=== PATIENT | female | born 1955 | race Caucasian/White ===

== ENCOUNTER 2016-07-26 14:51 | Inpatient (IN) | payer OTHER ==
[~2016-07-26] VITALS: Ht 165.1 cm; Wt 76.0 kg
--- NOTE | 2016-07-26 15:40 | EKG ---
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
[2016-07-26 16:36] LABS: BASO % 1 % (0-3); EOS % 1 % (0-3); HEMATOCRIT 39.3 % (36.0-47.0); HEMOGLOBIN 12.9 g/dL (12.0-15.5); LYMPH # 2.6 x10^3/uL (1.0-4.8); LYMPH % 39 % (24-48); MEAN CORPUSCULAR HEMOGLOBIN 29 pg (25-35); MEAN CORPUSCULAR HGB CONC 33 g/dL (31-37); MEAN CORPUSCULAR VOLUME 89 fL (79-100); MONO % 5 % (0-9); NEUT % 55 % (31-73); PLATELET COUNT 346 x10^3/uL (140-400); RED BLOOD COUNT 4.42 x10^6/uL (3.50-5.40); RED CELL DISTRIBUTION WIDTH 13.7 % (11.5-14.5); WHITE BLOOD COUNT 6.8 x10^3/uL (4.0-11.0)
[2016-07-26 16:44] LABS: BARBITURATES NEG (NEG); BENZODIAZEPINES NEG (NEG); CANNABINOIDS NEG (NEG); COCAINE NEG (NEG); METHADONE NEG (NEG); OPIATES NEG (NEG); PHENCYCLIDINE NEG (NEG)
[2016-07-26 16:45] LABS: ETHANOL, URINE NEG (NEG)
[2016-07-26 16:51] LABS: CALCIUM 9.6 mg/dL (8.5-10.1); CREATININE 1.2 mg/dL (0.6-1.0); GFR 46.1; POTASSIUM 3.6 mmol/L (3.5-5.1); PROTHROMBIN TIME PATIENT 12.5 SEC (11.7-14.0)
--- NOTE | 2016-07-26 16:55 | RAD ---
CT of the head without contrast, 07/26/2016: History: Right arm weakness The ventricles are within normal limits in size. There is no shift of the midline structures. There is no evidence of acute intracranial hemorrhage or mass effect. IMPRESSION: No acute intracranial abnormality is detected. PQRS Compliance Statement: One or more of the following individualized dose reduction techniques were utilized for this examination: 1. Automated exposure control 2. Adjustment of the mA and/or kV according to patient size 3. Use of iterative reconstruction technique
[2016-07-26 16:56] LABS: ALBUMIN 4.1 g/dL (3.4-5.0); ALBUMIN/GLOBULIN RATIO 1.1 (1.0-1.7); TOTAL BILIRUBIN 0.4 mg/dL (0.2-1.0); TOTAL PROTEIN 7.7 g/dL (6.4-8.2)
--- NOTE | 2016-07-26 16:56 | RAD ---
Portable chest, 07/26/2016: History: Right arm numbness The heart size and pulmonary vascularity are normal. There is mild tortuosity of the thoracic aorta. There is minimal linear scarring or atelectasis in the left base. No pulmonary consolidation is seen. There is no evidence of pleural fluid. IMPRESSION: No acute cardiopulmonary abnormality is detected.
[2016-07-26] MEDS ORDERED: ASPIRIN 81 MG TAB.CHEW PO ONE (17:15)
[2016-07-26] MEDS ORDERED: ONDANSETRON PF 4 MG/2 ML VIAL. IV PRN (18:00)
--- NOTE | 2016-07-26 19:02 | PHYS DOC ---
Past Medical History Past Medical History: Other Additional Past Medical Histor: PID, Past Surgical History: Hysterectomy Additional Past Surgical Histo: l fa plates and r wr ortho, Alcohol Use: None Drug Use: None Adult General Chief Complaint Chief Complaint: NEURO SYMPTOMS/DEFICITS HPI HPI 60-year-old female who works at [employer] was at work today walked to the desk and suddenly felt everything shift to the right and developed what she describes as a " arm". She states the heaviness in her right arm went away but numbness and tingling persisted so she was concerned about a stroke so she came down to the emergency department for further evaluation. On arrival here patient states that her symptoms have essentially resolved. She denies any headache. She denies any visual or speech disturbance. She did not have any trouble with her gait. Her NIH stroke scale was 0 [] Review of Systems Review of Systems Constitutional: Denies fever or chills [] Eyes: Denies change in visual acuity, redness, or eye pain [] HENT: Denies nasal congestion or sore throat [] Respiratory: Denies cough or shortness of breath [] Cardiovascular: No additional information not addressed in HPI [] GI: Denies abdominal pain, nausea, vomiting, bloody stools or diarrhea [] : Denies dysuria or hematuria [] Musculoskeletal: Denies back pain or joint pain [] Integument: Denies rash or skin lesions [] Neurologic: Per history of present illness [] Endocrine: Denies polyuria or polydipsia [] Current Medications Current Medications Current Medications Medications (Trade) Dose Ordered Sig/Brandon Start Time Stop Time Status Last Admin Dose Admin Aspirin (Children'S Aspirin) 324 mg 1X ONCE 07/26/16 17:15 07/26/16 17:16 DC 07/26/16 17:21 324 MG Ondansetron HCl (Zofran) 4 mg PRN Q8HRS PRN 07/26/16 18:00 07/27/16 17:59 Allergies Allergies Allergies Coded Allergies Type Severity Reaction Last Updated Verified egg Allergy Intermediate 07/26/16 Yes gluten Allergy Unknown 07/26/16 Yes soy Allergy Unknown 07/26/16 Yes diazepam Adverse Reaction Intermediate 07/26/16 Yes Physical Exam Physical Exam Constitutional: Well developed, well nourished, no acute distress, non-toxic appearance. [] HENT: Normocephalic, atraumatic, bilateral external ears normal, oropharynx moist, no oral exudates, nose normal. [] Eyes: PERRLA, EOMI, conjunctiva normal, no discharge. [] Neck: Normal range of motion, no tenderness, supple, no stridor. [] Cardiovascular:Heart rate regular rhythm, no murmur [] Lungs & Thorax: Bilateral breath sounds clear to auscultation [] Abdomen: Bowel sounds normal, soft, no tenderness, no masses, no pulsatile masses. [] Skin: Warm, dry, no erythema, no rash. [] Back: No tenderness, no CVA tenderness. [] Extremities: No tenderness, no cyanosis, no clubbing, ROM intact, no edema. [] Neurologic: Alert and oriented X 3, normal motor function, normal sensory function, no focal deficits noted. [] Psychologic: Affect normal, judgement normal, mood normal. [] Current Patient Data Vital Signs Vital Signs Date Time Temp Pulse Resp B/P Pulse Ox O2 Delivery O2 Flow Rate FiO2 07/26/16 18:00 70 17 126/73 98 Room Air 07/26/16 14:59 98.6 98.6 Lab Values Laboratory Tests Test 07/26/16 15:05 07/26/16 15:30 White Blood Count 6.8x10^3/uL (4.0-11.0) Red Blood Count 4.42x10^6/uL (3.50-5.40) Hemoglobin 12.9g/dL (12.0-15.5) Hematocrit 39.3% (36.0-47.0) Mean Corpuscular Volume 89fL (79-100) Mean Corpuscular Hemoglobin 29pg (25-35) Mean Corpuscular Hemoglobin Concent 33g/dL (31-37) Red Cell Distribution Width 13.7% (11.5-14.5) Platelet Count 346x10^3/uL (140-400) Neutrophils (%) (Auto) 55% (31-73) Lymphocytes (%) (Auto) 39% (24-48) Monocytes (%) (Auto) 5% (0-9) Eosinophils (%) (Auto) 1% (0-3) Basophils (%) (Auto) 1% (0-3) Neutrophils # (Auto) 3.7x10^3uL (1.8-7.7) Lymphocytes # (Auto) 2.6x10^3/uL (1.0-4.8) Monocytes # (Auto) 0.3x10^3/uL (0.0-1.1) Eosinophils # (Auto) 0.1x10^3/uL (0.0-0.7) Basophils # (Auto) 0.0x10^3/uL (0.0-0.2) Prothrombin Time 12.5SEC (11.7-14.0) Prothrombin Time INR 1.0 (0.8-1.1) PTT 27SEC (24-38) Sodium Level 141mmol/L (136-145) Potassium Level 3.6mmol/L (3.5-5.1) Chloride Level 104mmol/L (98-107) Carbon Dioxide Level 28mmol/L (21-32) Anion Gap 9 (6-14) Blood Urea Nitrogen 19mg/dL (7-20) Creatinine 1.2mg/dL (0.6-1.0) H Estimated GFR (Cockcroft-Gault) 46.1 BUN/Creatinine Ratio 16 (6-20) Glucose Level 94mg/dL (70-99) Calcium Level 9.6mg/dL (8.5-10.1) Total Bilirubin 0.4mg/dL (0.2-1.0) Aspartate Amino Transferase (AST) 18U/L (15-37) Alanine Aminotransferase (ALT) 27U/L (14-59) Alkaline Phosphatase 63U/L (46-116) Total Protein 7.7g/dL (6.4-8.2) Albumin 4.1g/dL (3.4-5.0) Albumin/Globulin Ratio 1.1 (1.0-1.7) Urine Opiates Screen Neg (NEG) Urine Methadone Screen Neg (NEG) Urine Barbiturates Neg (NEG) Urine Phencyclidine Screen Neg (NEG) Urine Amphetamine/Methamphetamine Neg (NEG) Urine Benzodiazepines Screen Neg (NEG) Urine Cocaine Screen Neg (NEG) Urine Cannabinoids Screen Neg (NEG) Urine Ethyl Alcohol Neg (NEG) Laboratory Tests 07/26/16 15:05 Laboratory Tests 07/26/16 15:05 EKG EKG EKG: Normal sinus rhythm rate of [address]-T changes [] Radiology/Procedures Radiology/Procedures [Chest x-ray: No acute cardiopulmonary abnormality is detected] Impressions: PROCEDURE: HEAD WO CONTRAST CT of the head without contrast, 07/26/2016: History: Right arm weakness The ventricles are within normal limits in size. There is no shift of the midline structures. There is no evidence of acute intracranial hemorrhage or mass effect. IMPRESSION: No acute intracranial abnormality is detected. Course & Med Decision Making Course & Med Decision Making Pertinent Labs and Imaging studies reviewed. (See chart for details) [ED course: I which reveals a 60-year-old female who is neurologically intact. She did have concerning symptoms that certainly could've been a TIA. She was given the option of going home and having this worked up as an outpatient but I feel this in the patient's best interest to stay and have this worked up as an inpatient. I spoke with Dr. Lambert who agreed to accept the patient for admission. She was given an aspirin in the emergency department.] Dragon Disclaimer Dragon Disclaimer This electronic medical record was generated, in whole or in part, using a voice recognition dictation system. 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
[2016-07-26 19:30] VITALS: BP 124/72
--- NOTE | 2016-07-26 23:02 | HP ---
ADMIT DATE: 07/26/2016 CHIEF COMPLAINT: Right arm weakness, numbness, tingling. HISTORY OF PRESENT ILLNESS: The patient is a 60-year-old woman without any past medical history who noted at work to all of a sudden have a " arm." She was unable to lift her arm and actually had to swing her shoulder about to get her forearm on to the table. When she turned around to talk to her coworkers, she noticed that her face perception was off and she felt like she was leaning, although she was sitting straight up. The weakness in her arm actually resolved fairly quickly to be replaced by tingling in her arm. She immediately thought of having a stroke and went to the Emergency Room. The symptoms resolved spontaneously there within about half an hour. She denied any headaches, denied any persistent abnormal sensations, denied any weakness in her lower extremities, speech difficulties or other symptoms. The patient was evaluated in the Emergency Room and was thought to have had a TIA. She is now admitted for observation and neurological evaluation. PAST MEDICAL HISTORY: None. FAMILY HISTORY: Stroke in paternal grandfather. No heart disease known. SOCIAL HISTORY: No toxic habits, has revamped her life to be very healthy organic over the past few months. Exercises regularly. ALLERGIES: DIAZEPAM, EGG, GLUTEN AND SOY. MEDICATIONS: All medications reconciled with MAR. REVIEW OF SYSTEMS: Positive essentially as per HPI. Currently, she is asymptomatic in the entire organ system review. PHYSICAL EXAMINATION: VITAL SIGNS: Show blood pressure of 126/73, heart rate of 70, respiratory rate is 17. She is afebrile. GENERAL: This is a 60-year-old woman, well nourished, alert and oriented, in no acute distress, appearing younger than her stated age. HEENT: Shows no scleral icterus. LUNGS: Clear. HEART: Regular rate and rhythm. ABDOMEN: Has positive bowel sounds, soft, nontender. EXTREMITIES: Show no edema. NEUROLOGIC: Muscle strength is 5/5 throughout. Sensation is intact. LABORATORY DATA: CBC from today shows a WBC of 6.8, hemoglobin 12.9, platelets of 346. Chemistries with a BUN and creatinine of 19 and 1.2, normal electrolytes, normal LFTs. Tox screen completely negative and normal coags. IMAGING: CT of the head without contrast shows no acute intracranial abnormalities. ASSESSMENT AND PLAN: The patient is a 60-year-old woman without any other medical problems who presents with a very brief episode consistent with a TIA. She has been given aspirin in the Emergency Room already. Obtain a neurological consult in the morning. Would recommend continuing aspirin. Discussed this with her, she would prefer a "natural medications." MAIA BANG MD DR: UR/nts JOB#: [id number] / [id number] GRETCHEN
[2016-07-26 23:30] VITALS: BP 110/61
[2016-07-27 03:30] VITALS: BP 98/55
[2016-07-27 07:00] VITALS: BP 98/64
--- NOTE | 2016-07-27 10:44 | PDOC2 ---
NEUROLOGY CONSULT Date of Admission Date of Admission DATE: 07/27/16 TIME: 10:38 Reason for Consult Reason for Consult: Transient ischemic attack Referring Physician Referring Physician: Dr. Lambert Does not have a PCP Source Source: Chart review, Patient History of Present Illness History of Present Illness The patient is a 60-year-old right-handed female at work here at [employer] yesterday when she noticed that she could not move her right arm. Her head felt funny, but there was no pain, more of a pressure sensation. She asked her coworker for help and was able to speak to her. She was brought to the emergency department or symptoms resolved within a half hour. She feels fine now. There is no history of migraine headache, stroke, seizure, head injury, transient ischemic attack, cognitive change. In fact, she has no medical problems. 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 Current Medications Current Medications Current Medications Aspirin (Children'S Aspirin) 324 mg 1X ONCE PO Last administered on 07/26/16t 17:21; Start 07/26/16 at 17:15; Stop 07/26/16 at 17:16; Status DC Ondansetron HCl (Zofran) 4 mg PRN Q8HRS PRN IV NAUSEA/VOMITING; Start 07/26/16 at 18:00; Stop 07/27/16 at 17:59 Aspirin (Damian Aspirin) 325 mg DAILYWBKFT PO ; Start 07/27/16 at 09:30 Active Scripts Active Reported No Known Medications Prior To Admisstion (Info) Each 1 Each Allergies Allergies: Coded Allergies: egg (Verified Allergy, Intermediate, 07/26/16) gluten (Verified Allergy, Unknown, 07/26/16) soy (Verified Allergy, Unknown, 07/26/16) diazepam (Verified Adverse Reaction, Intermediate, 07/26/16) ROS Review of System Negative for fevers, chills, weight loss, shortness of breath, chest pain, indigestion, hematochezia, melena, dysuria. Full 14-point review systems is negative. Physical Exam Physical Examination PHYSICAL EXAMINATION: Vital signs: see above. General appearance is normal and in no acute distress. HEENT: Normocephalic and nontraumatic. Eyes, nose, ears, and throat are unremarkable. NEUROLOGICAL EXAMINATION: Mental Status Examination: Alert. Oriented to time, place, and person. Answers questions and follows commends. Pupils are equal round and reactive to light and accommodation. Extraocular movements are intact. Visual field exam shows no defect on the direct confrontation. No motor or sensory deficits on the facial exam. Uvula in the midline and the soft palate elevated symmetrically. No deviation of the tongue to any direction. Gross hearing is normal. Shoulder shrug normal. Muscle tone is normal. Muscle strength is 5. Deep tendon reflexes are 2+ all around. Plantar reflex is with flexion response bilaterally. Flrjlp-ve-rect test performance is accurate. Tandem walk test is accurate. Alternative movements are accurate. Romberg test is negative. Gait is normal. Sensory exam shows no deficits. No cerebellar signs are elicited. Vitals VITALS Vital Signs Date Time Temp Pulse Resp B/P Pulse Ox O2 Delivery O2 Flow Rate FiO2 07/27/16 08:00 Room Air 07/27/16 07:00 97.8 58 18 98/64 100 97.8 Labs Labs Laboratory Tests Test 07/26/16 15:05 07/26/16 15:30 White Blood Count 6.8x10^3/uL (4.0-11.0) Red Blood Count 4.42x10^6/uL (3.50-5.40) Hemoglobin 12.9g/dL (12.0-15.5) Hematocrit 39.3% (36.0-47.0) Mean Corpuscular Volume 89fL (79-100) Mean Corpuscular Hemoglobin 29pg (25-35) Mean Corpuscular Hemoglobin Concent 33g/dL (31-37) Red Cell Distribution Width 13.7% (11.5-14.5) Platelet Count 346x10^3/uL (140-400) Neutrophils (%) (Auto) 55% (31-73) Lymphocytes (%) (Auto) 39% (24-48) Monocytes (%) (Auto) 5% (0-9) Eosinophils (%) (Auto) 1% (0-3) Basophils (%) (Auto) 1% (0-3) Neutrophils # (Auto) 3.7x10^3uL (1.8-7.7) Lymphocytes # (Auto) 2.6x10^3/uL (1.0-4.8) Monocytes # (Auto) 0.3x10^3/uL (0.0-1.1) Eosinophils # (Auto) 0.1x10^3/uL (0.0-0.7) Basophils # (Auto) 0.0x10^3/uL (0.0-0.2) Prothrombin Time 12.5SEC (11.7-14.0) Prothromb Time International Ratio 1.0 (0.8-1.1) Activated Partial Thromboplast Time 27SEC (24-38) Sodium Level 141mmol/L (136-145) Potassium Level 3.6mmol/L (3.5-5.1) Chloride Level 104mmol/L (98-107) Carbon Dioxide Level 28mmol/L (21-32) Anion Gap 9 (6-14) Blood Urea Nitrogen 19mg/dL (7-20) Creatinine 1.2mg/dL (0.6-1.0) Estimated GFR (Cockcroft-Gault) 46.1 BUN/Creatinine Ratio 16 (6-20) Glucose Level 94mg/dL (70-99) Calcium Level 9.6mg/dL (8.5-10.1) Total Bilirubin 0.4mg/dL (0.2-1.0) Aspartate Amino Transf (AST/SGOT) 18U/L (15-37) Alanine Aminotransferase (ALT/SGPT) 27U/L (14-59) Alkaline Phosphatase 63U/L (46-116) Total Protein 7.7g/dL (6.4-8.2) Albumin 4.1g/dL (3.4-5.0) Albumin/Globulin Ratio 1.1 (1.0-1.7) Urine Opiates Screen Neg (NEG) Urine Methadone Screen Neg (NEG) Urine Barbiturates Neg (NEG) Urine Phencyclidine Screen Neg (NEG) Urine Amphetamine/Methamphetamine Neg (NEG) Urine Benzodiazepines Screen Neg (NEG) Urine Cocaine Screen Neg (NEG) Urine Cannabinoids Screen Neg (NEG) Urine Ethyl Alcohol Neg (NEG) Laboratory Tests Test 07/26/16 15:05 07/26/16 15:30 White Blood Count 6.8x10^3/uL (4.0-11.0) Red Blood Count 4.42x10^6/uL (3.50-5.40) Hemoglobin 12.9g/dL (12.0-15.5) Hematocrit 39.3% (36.0-47.0) Mean Corpuscular Volume 89fL (79-100) Mean Corpuscular Hemoglobin 29pg (25-35) Mean Corpuscular Hemoglobin Concent 33g/dL (31-37) Red Cell Distribution Width 13.7% (11.5-14.5) Platelet Count 346x10^3/uL (140-400) Neutrophils (%) (Auto) 55% (31-73) Lymphocytes (%) (Auto) 39% (24-48) Monocytes (%) (Auto) 5% (0-9) Eosinophils (%) (Auto) 1% (0-3) Basophils (%) (Auto) 1% (0-3) Neutrophils # (Auto) 3.7x10^3uL (1.8-7.7) Lymphocytes # (Auto) 2.6x10^3/uL (1.0-4.8) Monocytes # (Auto) 0.3x10^3/uL (0.0-1.1) Eosinophils # (Auto) 0.1x10^3/uL (0.0-0.7) Basophils # (Auto) 0.0x10^3/uL (0.0-0.2) Prothrombin Time 12.5SEC (11.7-14.0) Prothromb Time International Ratio 1.0 (0.8-1.1) Activated Partial Thromboplast Time 27SEC (24-38) Sodium Level 141mmol/L (136-145) Potassium Level 3.6mmol/L (3.5-5.1) Chloride Level 104mmol/L (98-107) Carbon Dioxide Level 28mmol/L (21-32) Anion Gap 9 (6-14) Blood Urea Nitrogen 19mg/dL (7-20) Creatinine 1.2mg/dL (0.6-1.0) Estimated GFR (Cockcroft-Gault) 46.1 BUN/Creatinine Ratio 16 (6-20) Glucose Level 94mg/dL (70-99) Calcium Level 9.6mg/dL (8.5-10.1) Total Bilirubin 0.4mg/dL (0.2-1.0) Aspartate Amino Transf (AST/SGOT) 18U/L (15-37) Alanine Aminotransferase (ALT/SGPT) 27U/L (14-59) Alkaline Phosphatase 63U/L (46-116) Total Protein 7.7g/dL (6.4-8.2) Albumin 4.1g/dL (3.4-5.0) Albumin/Globulin Ratio 1.1 (1.0-1.7) Urine Opiates Screen Neg (NEG) Urine Methadone Screen Neg (NEG) Urine Barbiturates Neg (NEG) Urine Phencyclidine Screen Neg (NEG) Urine Amphetamine/Methamphetamine Neg (NEG) Urine Benzodiazepines Screen Neg (NEG) Urine Cocaine Screen Neg (NEG) Urine Cannabinoids Screen Neg (NEG) Urine Ethyl Alcohol Neg (NEG) Images Images CT head negative Assessment/Plan Assessment/Plan Impression: Transient ischemic attack, but rather strange, with profound weakness of a single extremity. She had a funny pressure like sensation in the head which could have been a migraine, but there is no history of such. Symptoms are not typical of any type of seizure. Recommendations: I ordered workup for TIA which was not done yesterday. MRI the brain, carotid Doppler scum echocardiogram Continue aspirin if patient is willing. I know that she wants to use "natural" remedies Consider LINQ recorder for cardiac arrhythmia that may have caused this. I consulted cardiology [facility] for discharge later today. Thank you for letting me help with the patient's care. DAKSHA EDWARDS MD Jul 27, 2016 10:44
--- NOTE | 2016-07-27 10:46 | ACF ---
Admission Forms Criteria TRANSIENT ISCHEMIC ATTACK (TIA) Clinical Indications for Admission to Inpatient Care (Place 'X' for any and all applicable criteria): Admission is indicated for ANY ONE of the following(1)(2)(3)(4)(5): [ ]I. Immediate inpatient procedure is needed (eg, endarterectomy). [X]II. Inpatient admission required rather than observation care (Also use Transient Ischemic Attack (TIA): Observation Care Criteria as appropriate) because of ANY ONE of the following: [X]a) Focal neurologic signs or symptoms persist or recurring [ ]b) Cardiac arrhythmias of immediate concern [ ]c) Clinically significant cardiac disorder identified that requires inpatient care (eg, severe valvular disease, atrial myxoma, cardiomyopathy) [ ]d) Hypertension requiring inpatient treatment [ ]e) Parenteral anticoagulation required (eg, alternative forms of anticoagulation not appropriate or not feasible) as indicated by ALL of the following(13): [ ]i) Temporary subtherapeutic anticoagulation unacceptable because of high risk of short-term venous or arterial thromboembolism due to ANY ONE of the following(14)(15)(16): [ ]1) Atrial fibrillation suspected as etiology of TIA(17)(18)(19)(20)(21) [ ]2) Venous thromboembolism within past 12 months [ ]3) Underlying malignancy [ ]4) Patient with mechanical cardiac valve(22)( 23) [ ]5) Underlying hypercoagulable state (eg, protein C or protein S deficiency antithrombin deficiency, antiphospholipid antibodies) [ ]6) Patient at temporary high risk of thromboembolism (eg, status post orthopedic surgery) [ ]ii) Contraindications to outpatient use of "bridging" agent or alternative oral anticoagulant[B] as indicated by ALL of the following: [ ]1) Contraindication to outpatient use of low- molecular-weight heparin as "bridging" agent as indicated by ANY ONE of the following(15): [ ]A. Documented current or history of heparin-induced thrombocytopenia(24) [ ]B. Severe thrombocytopenia (eg, platelet count less than 50,000/mm3 (62n587/L) [ ]C. Documented allergy to heparin, low- molecular-weight heparin, or pork products [ ]D. Renal failure (creatinine clearance less than 30 mL/min/1.73m2 (0.50mL/sec/1.73m2) or on dialysis) [ ]E. Inability to manage self-injection ( eg, by patient, caregiver, or visiting nurse) [ ]2) Contraindication to outpatient use of fondaparinux as "bridging" agent as indicated by ANY ONE of the following(25)(26 )(27)(28): [ ]A. Severe thrombocytopenia (eg, platelet count less than 50,000/mm3 (50 x109/L)) [ ]B.Hypersensitivity to fondaparinux, related drugs, or product components [ ]C.Renal failure (creatinine clearance less than 30 mL/min/1.73m2 (0.50mL/sec/1.73m2) or on dialysis) [ ]D.Inability to manage self-injection ( eg, by patient, caregiver, or visiting nurse [ ]3. Oral direct thrombin inhibitor (eg, dabigatran) or oral coagulation factor Xa inhibitor (eg, rivaroxaban, apixaban) not appropriate as oral anticoagulation (eg, indication not appropriate) or contraindicated (eg, hypersensitivity, creatinine clearance less than 15 mL/min/1.73m2 ( 0.25 mL/sec/1.73m2) or on dialysis). [ ]f) Continuous IV infusion of anticoagulant, platelet inhibitor, vasoactive or antiarrhythmia(18)(19) [ ]g) Other condition, treatment, or monitoring requiring inpatient admission [ ]III. Contraindications and/or Inappropriate clinical situations for Observational Care in patients with Transient Ischemic Attack (TIA), when ANY ONE of the following is required: [ ]a) Patient with persistent or severe neurological deficit 24 [ ]b) Patient with acute CVA or other identified pathology should be admitted to inpatient for further care 25 [ ]IV. General contraindications and/or Inappropriate clinical situations for Observational Care in patients with Transient Ischemic Attack (TIA), when ANY ONE of the following is required: [ ]a) Prediction of prolongation of LOS based on ANY ONE of the following may be considered as a contraindication for observational care 2, 3, 4, 5, 6, 7, 8, 9, 10, 11 [ ]i) Age > 65 yrs. [ ]ii) Patient arriving by ambulance [ ]iii) Patient with high acuity [ ]iv) Patient requiring vital sign monitoring [ ]v) Patient on IV medication [ ]b) Systolic blood pressures 180mmHg 3,12 [ ]c) Patient with altered mental status including delirium and other alteration of consciousness, (3) [ ]d) Patient whose discharge disposition will be to a longterm home or rehabilitation home should not be managed in Emergency Department Observation Unit. CMS rule requires 3 days hospital stay before such placement.3,13 [ ]e) Patient with failure to thrive due to broad array of etiologies 3,16,17 [ ]f) Inability to ambulate 3,14 Extended stay beyond goal length of stay may be needed for(4)(30)(32): [ ]a) Parenteral anticoagulation required [ ]b) Dangerous arrhythmia [ ]c) Cardiac valvular disorder, atrial myxoma, cardiomyopathy [ ]d) Uncontrolled severe hypertension [ ]e) Severe carotid stenosis [ ]f) Active comorbidities (eg, heart failure) [ ]g) Extracranial vertebrobasilar disease(29) [ ]h) Clinical evolution of TIA into cerebrovascular accident (stroke) The original [facility] content created by [facility] has been revised. The portions of thecontent which have been revised are identified through the use of italic text or in bold, and [facility] has neither reviewed nor approved the modified material. All other unmodified content is copyright [facility]. Please see references footnoted in the original [facility] [employer] edition 2015 Admission Criteria Met?: Yes TRACY PERRIN Jul 27, 2016 10:46
[2016-07-27 11:00] VITALS: BP 117/68
--- NOTE | 2016-07-27 11:45 | PDOC ---
PROGRESS NOTES Chief Complaint Chief Complaint Transient ischemic attack, Right upper extremity numbness. Plan asymptomatic Echo pending MRI US carotids pending Vitals Vitals Vital Signs Date Time Temp Pulse Resp B/P Pulse Ox O2 Delivery O2 Flow Rate FiO2 07/27/16 11:00 97.4 71 18 117/68 100 Room Air 97.4 Physical Exam General: Alert, Oriented X3 Heart: Normal S1, Normal S2 Lungs: Wheezing Abdomen: Normal bowel sounds, Soft Extremities: No clubbing Labs LABS Laboratory Tests Test 07/26/16 15:05 07/26/16 15:30 White Blood Count 6.8x10^3/uL (4.0-11.0) Red Blood Count 4.42x10^6/uL (3.50-5.40) Hemoglobin 12.9g/dL (12.0-15.5) Hematocrit 39.3% (36.0-47.0) Mean Corpuscular Volume 89fL (79-100) Mean Corpuscular Hemoglobin 29pg (25-35) Mean Corpuscular Hemoglobin Concent 33g/dL (31-37) Red Cell Distribution Width 13.7% (11.5-14.5) Platelet Count 346x10^3/uL (140-400) Neutrophils (%) (Auto) 55% (31-73) Lymphocytes (%) (Auto) 39% (24-48) Monocytes (%) (Auto) 5% (0-9) Eosinophils (%) (Auto) 1% (0-3) Basophils (%) (Auto) 1% (0-3) Neutrophils # (Auto) 3.7x10^3uL (1.8-7.7) Lymphocytes # (Auto) 2.6x10^3/uL (1.0-4.8) Monocytes # (Auto) 0.3x10^3/uL (0.0-1.1) Eosinophils # (Auto) 0.1x10^3/uL (0.0-0.7) Basophils # (Auto) 0.0x10^3/uL (0.0-0.2) Prothrombin Time 12.5SEC (11.7-14.0) Prothromb Time International Ratio 1.0 (0.8-1.1) Activated Partial Thromboplast Time 27SEC (24-38) Sodium Level 141mmol/L (136-145) Potassium Level 3.6mmol/L (3.5-5.1) Chloride Level 104mmol/L (98-107) Carbon Dioxide Level 28mmol/L (21-32) Anion Gap 9 (6-14) Blood Urea Nitrogen 19mg/dL (7-20) Creatinine 1.2mg/dL (0.6-1.0) Estimated GFR (Cockcroft-Gault) 46.1 BUN/Creatinine Ratio 16 (6-20) Glucose Level 94mg/dL (70-99) Calcium Level 9.6mg/dL (8.5-10.1) Total Bilirubin 0.4mg/dL (0.2-1.0) Aspartate Amino Transf (AST/SGOT) 18U/L (15-37) Alanine Aminotransferase (ALT/SGPT) 27U/L (14-59) Alkaline Phosphatase 63U/L (46-116) Total Protein 7.7g/dL (6.4-8.2) Albumin 4.1g/dL (3.4-5.0) Albumin/Globulin Ratio 1.1 (1.0-1.7) Urine Opiates Screen Neg (NEG) Urine Methadone Screen Neg (NEG) Urine Barbiturates Neg (NEG) Urine Phencyclidine Screen Neg (NEG) Urine Amphetamine/Methamphetamine Neg (NEG) Urine Benzodiazepines Screen Neg (NEG) Urine Cocaine Screen Neg (NEG) Urine Cannabinoids Screen Neg (NEG) Urine Ethyl Alcohol Neg (NEG) Assessment and Plan Assessmemt and Plan Problems Medical Problems: (1) Transient ischemic attack (TIA) Status: Acute Problems: Comment Review of Relevant I have reviewed the following items cris (where applicable) has been applied. Labs Laboratory Tests Test 07/26/16 15:05 07/26/16 15:30 White Blood Count 6.8x10^3/uL (4.0-11.0) Red Blood Count 4.42x10^6/uL (3.50-5.40) Hemoglobin 12.9g/dL (12.0-15.5) Hematocrit 39.3% (36.0-47.0) Mean Corpuscular Volume 89fL (79-100) Mean Corpuscular Hemoglobin 29pg (25-35) Mean Corpuscular Hemoglobin Concent 33g/dL (31-37) Red Cell Distribution Width 13.7% (11.5-14.5) Platelet Count 346x10^3/uL (140-400) Neutrophils (%) (Auto) 55% (31-73) Lymphocytes (%) (Auto) 39% (24-48) Monocytes (%) (Auto) 5% (0-9) Eosinophils (%) (Auto) 1% (0-3) Basophils (%) (Auto) 1% (0-3) Neutrophils # (Auto) 3.7x10^3uL (1.8-7.7) Lymphocytes # (Auto) 2.6x10^3/uL (1.0-4.8) Monocytes # (Auto) 0.3x10^3/uL (0.0-1.1) Eosinophils # (Auto) 0.1x10^3/uL (0.0-0.7) Basophils # (Auto) 0.0x10^3/uL (0.0-0.2) Prothrombin Time 12.5SEC (11.7-14.0) Prothromb Time International Ratio 1.0 (0.8-1.1) Activated Partial Thromboplast Time 27SEC (24-38) Sodium Level 141mmol/L (136-145) Potassium Level 3.6mmol/L (3.5-5.1) Chloride Level 104mmol/L (98-107) Carbon Dioxide Level 28mmol/L (21-32) Anion Gap 9 (6-14) Blood Urea Nitrogen 19mg/dL (7-20) Creatinine 1.2mg/dL (0.6-1.0) Estimated GFR (Cockcroft-Gault) 46.1 BUN/Creatinine Ratio 16 (6-20) Glucose Level 94mg/dL (70-99) Calcium Level 9.6mg/dL (8.5-10.1) Total Bilirubin 0.4mg/dL (0.2-1.0) Aspartate Amino Transf (AST/SGOT) 18U/L (15-37) Alanine Aminotransferase (ALT/SGPT) 27U/L (14-59) Alkaline Phosphatase 63U/L (46-116) Total Protein 7.7g/dL (6.4-8.2) Albumin 4.1g/dL (3.4-5.0) Albumin/Globulin Ratio 1.1 (1.0-1.7) Urine Opiates Screen Neg (NEG) Urine Methadone Screen Neg (NEG) Urine Barbiturates Neg (NEG) Urine Phencyclidine Screen Neg (NEG) Urine Amphetamine/Methamphetamine Neg (NEG) Urine Benzodiazepines Screen Neg (NEG) Urine Cocaine Screen Neg (NEG) Urine Cannabinoids Screen Neg (NEG) Urine Ethyl Alcohol Neg (NEG) Laboratory Tests Test 07/26/16 15:05 07/26/16 15:30 White Blood Count 6.8x10^3/uL (4.0-11.0) Red Blood Count 4.42x10^6/uL (3.50-5.40) Hemoglobin 12.9g/dL (12.0-15.5) Hematocrit 39.3% (36.0-47.0) Mean Corpuscular Volume 89fL (79-100) Mean Corpuscular Hemoglobin 29pg (25-35) Mean Corpuscular Hemoglobin Concent 33g/dL (31-37) Red Cell Distribution Width 13.7% (11.5-14.5) Platelet Count 346x10^3/uL (140-400) Neutrophils (%) (Auto) 55% (31-73) Lymphocytes (%) (Auto) 39% (24-48) Monocytes (%) (Auto) 5% (0-9) Eosinophils (%) (Auto) 1% (0-3) Basophils (%) (Auto) 1% (0-3) Neutrophils # (Auto) 3.7x10^3uL (1.8-7.7) Lymphocytes # (Auto) 2.6x10^3/uL (1.0-4.8) Monocytes # (Auto) 0.3x10^3/uL (0.0-1.1) Eosinophils # (Auto) 0.1x10^3/uL (0.0-0.7) Basophils # (Auto) 0.0x10^3/uL (0.0-0.2) Prothrombin Time 12.5SEC (11.7-14.0) Prothromb Time International Ratio 1.0 (0.8-1.1) Activated Partial Thromboplast Time 27SEC (24-38) Sodium Level 141mmol/L (136-145) Potassium Level 3.6mmol/L (3.5-5.1) Chloride Level 104mmol/L (98-107) Carbon Dioxide Level 28mmol/L (21-32) Anion Gap 9 (6-14) Blood Urea Nitrogen 19mg/dL (7-20) Creatinine 1.2mg/dL (0.6-1.0) Estimated GFR (Cockcroft-Gault) 46.1 BUN/Creatinine Ratio 16 (6-20) Glucose Level 94mg/dL (70-99) Calcium Level 9.6mg/dL (8.5-10.1) Total Bilirubin 0.4mg/dL (0.2-1.0) Aspartate Amino Transf (AST/SGOT) 18U/L (15-37) Alanine Aminotransferase (ALT/SGPT) 27U/L (14-59) Alkaline Phosphatase 63U/L (46-116) Total Protein 7.7g/dL (6.4-8.2) Albumin 4.1g/dL (3.4-5.0) Albumin/Globulin Ratio 1.1 (1.0-1.7) Urine Opiates Screen Neg (NEG) Urine Methadone Screen Neg (NEG) Urine Barbiturates Neg (NEG) Urine Phencyclidine Screen Neg (NEG) Urine Amphetamine/Methamphetamine Neg (NEG) Urine Benzodiazepines Screen Neg (NEG) Urine Cocaine Screen Neg (NEG) Urine Cannabinoids Screen Neg (NEG) Urine Ethyl Alcohol Neg (NEG) Medications Current Medications Aspirin (Children'S Aspirin) 324 mg 1X ONCE PO Last administered on 07/26/16t 17:21; Start 07/26/16 at 17:15; Stop 07/26/16 at 17:16; Status DC Ondansetron HCl (Zofran) 4 mg PRN Q8HRS PRN IV NAUSEA/VOMITING; Start 07/26/16 at 18:00; Stop 07/27/16 at 17:59 Aspirin (Damian Aspirin) 325 mg [id number] PO ; Start 07/27/16 at 09:30 Active Scripts Active Reported No Known Medications Prior To Admisstion (Info) Each 1 Each Vitals/I & O Vital Sign - Last 24 Hours 07/26/16 07/26/16 07/26/16 07/26/16 14:59 16:00 17:00 18:00 Temp 98.6 98.6 Pulse 75 74 71 70 Resp 18 17 B/P 137/84 133/81 119/75 126/73 Pulse Ox 97 97 97 98 O2 Delivery Room Air Room Air Room Air Room Air 07/26/16 07/26/16 07/26/16 07/26/16 19:30 19:30 19:30 20:00 Temp 97.5 97.5 97.5 97.5 Pulse 72 72 Resp 18 18 B/P 124/72 124/72 Pulse Ox 98 98 O2 Delivery Room Air Room Air Room Air Room Air 07/26/16 07/27/16 07/27/16 07/27/16 23:30 03:30 07:00 08:00 Temp 98.5 99.3 97.8 98.5 99.3 97.8 Pulse 71 57 58 Resp 18 18 B/P 110/61 98/55 98/64 Pulse Ox 98 97 100 O2 Delivery Room Air Room Air Room Air Room Air 07/27/16 11:00 Temp 97.4 97.4 Pulse 71 Resp 18 B/P 117/68 Pulse Ox 100 O2 Delivery Room Air Intake and Output 07/26/16 07/26/16 07/27/16 15:00 23:00 07:00 Intake Total 500 ml Balance 500 ml AL STRAUSS MD Jul 27, 2016 11:45
--- NOTE | 2016-07-27 11:54 | PDOC2 ---
KURTMARIO ALBERTO J WEATHERIZATION OPERATIONS MANAGER 07/27/16 1154: CARDIAC CONSULT DATE OF CONSULT Date of Consult DATE: 07/27/16 TIME: 11:54 REASON FOR CONSULT Reason for Consult: TIA HISTORY OF PRESENT ILLNESS HISTORY OF PRESENT ILLNESS Ms Anne is a 60 year old female who works here at [employer] in [employer]. She reports yesterday while sitting at her desk she had a sudden onset of numbness and inability to move her right arm. She reports associated feeling of fullness in her head. She denies any speech impediments, double vision, weakness in the lower extremity or gait impairment. She reports the numbness lasted about 30 minutes. She denies any chest discomfort, dyspnea, palpitations associated. She does report occasional feeling of her heart pounding with out associated symptoms. She notes this mostly at night. She reports being active and exercising regularly. She does state that she has been working on being able to sustain a 30 second plank recently. PAST MEDICAL HISTORY Past Medical History no significant medical history PAST SURGICAL HISTORY Past Surgical History hysterectomy FAMILY HISTORY Family History no significant cardiac history SOCIAL HISTORY Social History non smoker, no significant ETOH, no illicit drugs. exercises regularly. CURRENT MEDICATIONS CURRENT MEDICATIONS Current Medications Medications (Trade) Dose Ordered Sig/Brandon Route PRN Reason Start Time Stop Time Status Last Admin Dose Admin Aspirin (Children'S Aspirin) 324 mg 1X ONCE PO 07/26/16 17:15 07/26/16 17:16 DC 07/26/16 17:21 ALLERGIES ALLERGIES: Coded Allergies: egg (Verified Allergy, Intermediate, 07/26/16) gluten (Verified Allergy, Unknown, 07/26/16) soy (Verified Allergy, Unknown, 07/26/16) diazepam (Verified Adverse Reaction, Intermediate, 07/26/16) ROS Review of System as per HPI or negative PHYSICAL EXAM General: Alert, Oriented X3, Cooperative, No acute distress HEENT: Atraumatic, EOMI, Mucous membr. moist/pink Lungs: Clear to auscultation, Normal air movement Heart: Regular rate, Normal S1, Normal S2, No murmurs Abdomen: Normal bowel sounds, Soft Extremities: No cyanosis, No edema, Normal pulses Neuro: Normal speech, Strength at 5/5 X4 ext Psych/Mental Status: Mental status NL, Mood NL VITALS VITALS Vital Signs Date Time Temp Pulse Resp B/P Pulse Ox O2 Delivery O2 Flow Rate FiO2 07/27/16 11:00 97.4 71 18 117/68 100 Room Air 97.4 LABS Lab: Laboratory Tests Test 07/26/16 15:05 07/26/16 15:30 White Blood Count 6.8x10^3/uL (4.0-11.0) Red Blood Count 4.42x10^6/uL (3.50-5.40) Hemoglobin 12.9g/dL (12.0-15.5) Hematocrit 39.3% (36.0-47.0) Mean Corpuscular Volume 89fL (79-100) Mean Corpuscular Hemoglobin 29pg (25-35) Mean Corpuscular Hemoglobin Concent 33g/dL (31-37) Red Cell Distribution Width 13.7% (11.5-14.5) Platelet Count 346x10^3/uL (140-400) Neutrophils (%) (Auto) 55% (31-73) Lymphocytes (%) (Auto) 39% (24-48) Monocytes (%) (Auto) 5% (0-9) Eosinophils (%) (Auto) 1% (0-3) Basophils (%) (Auto) 1% (0-3) Neutrophils # (Auto) 3.7x10^3uL (1.8-7.7) Lymphocytes # (Auto) 2.6x10^3/uL (1.0-4.8) Monocytes # (Auto) 0.3x10^3/uL (0.0-1.1) Eosinophils # (Auto) 0.1x10^3/uL (0.0-0.7) Basophils # (Auto) 0.0x10^3/uL (0.0-0.2) Prothrombin Time 12.5SEC (11.7-14.0) Prothromb Time International Ratio 1.0 (0.8-1.1) Activated Partial Thromboplast Time 27SEC (24-38) Sodium Level 141mmol/L (136-145) Potassium Level 3.6mmol/L (3.5-5.1) Chloride Level 104mmol/L (98-107) Carbon Dioxide Level 28mmol/L (21-32) Anion Gap 9 (6-14) Blood Urea Nitrogen 19mg/dL (7-20) Creatinine 1.2mg/dL (0.6-1.0) Estimated GFR (Cockcroft-Gault) 46.1 BUN/Creatinine Ratio 16 (6-20) Glucose Level 94mg/dL (70-99) Calcium Level 9.6mg/dL (8.5-10.1) Total Bilirubin 0.4mg/dL (0.2-1.0) Aspartate Amino Transf (AST/SGOT) 18U/L (15-37) Alanine Aminotransferase (ALT/SGPT) 27U/L (14-59) Alkaline Phosphatase 63U/L (46-116) Total Protein 7.7g/dL (6.4-8.2) Albumin 4.1g/dL (3.4-5.0) Albumin/Globulin Ratio 1.1 (1.0-1.7) Urine Opiates Screen Neg (NEG) Urine Methadone Screen Neg (NEG) Urine Barbiturates Neg (NEG) Urine Phencyclidine Screen Neg (NEG) Urine Amphetamine/Methamphetamine Neg (NEG) Urine Benzodiazepines Screen Neg (NEG) Urine Cocaine Screen Neg (NEG) Urine Cannabinoids Screen Neg (NEG) Urine Ethyl Alcohol Neg (NEG) IMAGES IMAGES CT - IMPRESSION: No acute intracranial abnormality is detected. EKG EKG EKG unavailable. Tele - sinus rhythm ECHOCARDIOGRAM ECHOCARDIOGRAM pending ASSESSMENT/PLAN ASSESSMENT/PLAN 1. TIA - echo with bubble study pending. MRI pending. Agree with arrhythmia monitoring. Discussed with patient who would prefer non invasive monitoring to begin with. Suggest 1 month outpatient event monitoring. Re-visit loop recorder if event unremarkable. Problems: FIDEL GOMEZ MD 07/27/16 2495: CARDIAC CONSULT ALLERGIES ALLERGIES: Coded Allergies: egg (Verified Allergy, Intermediate, 07/26/16) gluten (Verified Allergy, Unknown, 07/26/16) soy (Verified Allergy, Unknown, 07/26/16) diazepam (Verified Adverse Reaction, Intermediate, 07/26/16) ASSESSMENT/PLAN ASSESSMENT/PLAN Pt. seen and examined. 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 No acute events overnight. Possible TIA symptoms Normal cardiac exam. Normal MRI, doppler and echo. Will DC on event monitor. Consider longer term eval with loop (will discuss on outpt basis) Thanks for consult. Ok to DC, will f/u on an outpt basis. Problems: MARIO ALBERTO HICKS APRN Jul 27, 2016 11:54 FIDEL GOMEZ MD Jul 27, 2016 22:45
--- NOTE | 2016-07-27 13:18 | RAD ---
Carotid ultrasound, 07/27/2016: History: TIA, dizziness Duplex evaluation of the carotid arteries in neck was performed including grayscale, color-flow and spectral Doppler analysis. There is mild intimal thickening in the common carotid arteries and at the carotid bifurcations. No significant focal plaque formation is identified. The Doppler data obtained from the bifurcations reveals no significant focal velocity elevation to suggest a hemodynamically significant carotid stenosis. Antegrade flow is present in both vertebral arteries in the neck. IMPRESSION: No significant carotid stenosis is identified in the neck. Note: Stenosis calculations for CT, MRA and conventional angiography are based upon determination of the distal ICA diameter in accordance with the NASCET methodology. Stenosis calculations for Doppler studies are derived from validated velocity criteria which are known to correlate with NASCET methodology of determining stenosis.
--- NOTE | 2016-07-27 13:40 | RAD ---
PROCEDURE MRI brain without contrast. HISTORY Right arm numbness, TIA TECHNIQUE Multiplanar, multi sequential, non contrast MR imaging was performed of the brain. COMPARISON None FINDINGS There is no restricted diffusion suggestive of recent infarct or cytotoxic edema. There is no intra-axial mass effect, midline shift, extra-axial fluid collection. There are a few scattered small foci of T2 and FLAIR hyperintense signal abnormality of the supratentorial white matter most notable of the left parietal lobe, also small focus of the right lentiform nucleus. There is preservation of the major arterial intracranial flow voids at the skull base. Mastoid air cells are aerated. There is patchy mild bilateral ethmoid air cell mucosal thickening. Cerebellar tonsils are normal in location. There is preserved marrow signal of the clivus. There is no significant abnormality of the pineal gland or pituitary gland. There is no significant hemosiderin deposition of the brain parenchyma. IMPRESSION 1. There is no evidence of recent infarct or intracranial mass effect. A few scattered small foci of T2 and FLAIR hyperintense signal abnormality of the supratentorial white matter and right basal ganglia are nonspecific. White matter changes can be seen in patients with migraine headaches if corresponding history. Sequela of chronic microvascular ischemic disease would be a consideration. Pattern is not particularly suggestive of an inflammatory demyelinating disease. Electronically signed by: Kevin Malik MD (Jul 27, 2016 13:39:04)
[2016-07-27 14:45] LABS: CHOLESTEROL/HDL RATIO 4.6
[2016-07-27 15:00] VITALS: BP 98/65
[2016-07-27] MEDS: ASPIRIN 325 MG TABLET PO SCH (15:47)
--- NOTE | 2016-07-27 19:37 | CARD ---
APPROVED REPORT EXAM: Two-dimensional and M-mode echocardiogram with Doppler and color Doppler. Other Information Quality : Average Rhythm : NSR INDICATION CVA/TIA Echo Enhancing Agent Indication: Rule Out Septal Defect Agent/Amount Used: Agitated Saline 8mL 2D DIMENSIONS RVDd2.9 (2.9-3.5cm)Left Atrium(2D)3.4 (1.6-4.0cm) IVSd0.9 (0.7-1.1cm)Aortic Root(2D)2.8 (2.0-3.7cm) LVDd4.6 (3.9-5.9cm)LVOT Diameter2.0 (1.8-2.4cm) PWd0.9 (0.7-1.1cm)LVDs2.7 (2.5-4.0cm) FS (%) 40.5 %SV69.9 ml LVEF(%)70.3 (>50%) Aortic Valve AoV Peak Dorian.158.9cm/sAoV VTI27.3cm AO Peak GR.10.1mmHgLVOT Peak Dorian.139.3cm/s LVOT VTI 25.82cmAO Mean GR.5mmHg PADMINI (VMAX)2.33pe6QAV (VTI)2.90cm2 Mitral Valve MV E Yfdjtnkx84.7cm/sMV DECEL TCFW750ij MV A Imcbufmj22.4cm/sMV E Mean Gr.2mmHg MV PXK06ibK/A Ratio1.1 MV A Xxfsdlrh210irIPL (PHT)4.07cm2 TDI E/Lateral E'8.4E/Medial E'9.8 Pulmonary Valve PV Peak Bzoovunt93.4cm/sPV Peak Grad.3mmHg RVOT VTI17.4cm Tricuspid Valve TR P. Qtjzpuhs057es/sRAP ZIWVPCNE4zeIa TR Peak Gr.84dwLnCDVW82sgKf Pulmonary Vein S1 Wgsqefzp64.9cm/sD2 Pkvppotm57.3cm/s LEFT VENTRICLE The left ventricle is normal size. There is normal left ventricular wall thickness. Left ventricle sy stolic function is normal. The Ejection Fraction is 65-70%. There is normal LV segmental wall motion. The left ventricular diastolic function and filling is normal for age. RIGHT VENTRICLE The right ventricle is normal size. The right ventricular systolic function is normal. ATRIA The left atrium size is normal. The right atrium size is normal. The interatrial septum is intact wit h no evidence for an atrial septal defect or patent foramen ovale as noted on 2-D or Doppler imaging. Normal bubble study. AORTIC VALVE The aortic valve is normal in structure and function. The aortic valve is trileaflet. Doppler and Col or Flow revealed no significant aortic regurgitation. There is no significant aortic valvular stenosi s. MITRAL VALVE The mitral valve leaflets are thickened. There is no mitral valve stenosis. Doppler and Color Flow re vealed mild mitral regurgitation. TRICUSPID VALVE The tricuspid valve is normal in structure and function. Doppler and Color Flow revealed mild tricusp id regurgitation. The PA pressure was estimated at 38 mmHg. There is no tricuspid valve stenosis. PULMONIC VALVE The pulmonic valve is not well visualized. Doppler and Color Flow revealed no pulmonic valvular regur gitation. There is no pulmonic valvular stenosis. GREAT VESSELS The aortic root is normal in size. Normal pulmonary venous flow (Doppler). The IVC is normal in size and collapses >50% with inspiration. PERICARDIAL EFFUSION There is no evidence of significant pericardial effusion. Critical Notification Critical Value: No <Conclusion> Left ventricle systolic function is normal. The Ejection Fraction is 65-70%. There is normal LV segmental wall motion. The interatrial septum is intact with no evidence for an atrial septal defect or patent foramen ovale as noted on 2-D or Doppler imaging. No evidence of left to right shunt by agitated saline contrast.
[2016-07-27 19:51] VITALS: BP 109/67
[2016-07-27 23:15] VITALS: BP 98/65
[2016-07-28 03:00] VITALS: BP 94/46
[2016-07-28 07:00] VITALS: BP 97/68
[2016-07-28] MEDS: ASPIRIN 325 MG TABLET PO SCH (09:14)
[2016-07-28 10:58] VITALS: BP 122/72
--- NOTE | 2016-07-28 12:09 | RAD ---
PROCEDURE MRI cervical spine without contrast HISTORY Neck pain and stiffness, right arm radiculopathy, numbness and weakness in the right arm TECHNIQUE Multiplanar, multi sequential non contrast MR imaging was performed of the cervical spine. COMPARISON None FINDINGS Cervical vertebral body stature and AP alignment are maintained. Cervical cord caliber is within normal limits without convincing focal signal abnormality allowing for mild artifact. There is no significant abnormality of the cervical medullary junction. There is mild degenerative disc disease C4-C5 and C6-7, mild disc desiccation C5-C6. There are posterior and anterior annular tears at C5-C6. There is no significant marrow edema. C2-3: Spinal canal and neural foramina are adequate. C3-C4: Spinal canal and neural foramina are adequate C4-5: Spinal canal is adequate. Neural foramina are overall adequate. There is very minimal uncovertebral degenerative change. C5-C6: Neural foramina and spinal canal are adequate. C6-7: There is minimal uncovertebral degenerative change. There is negligible posterior bulge. Spinal canal is adequate. Neural foramina are overall adequate. C7-T1: Neural foramina and spinal canal are adequate. IMPRESSION 1. There is mild degenerative disc disease C4-5 to C6-7. There is no significant cervical spinal stenosis or neural foramina compromise. Electronically signed by: Kevin Malik MD (Jul 28, 2016 12:07:48)
--- NOTE | 2016-07-28 12:21 | PDOC ---
PROGRESS NOTES Assessment Problems Medical Problems: (1) Transient ischemic attack (TIA) Status: Acute TIA, atypical symptoms, negative workup MRI cervical spine pending Plan Ok for discharge Follow-up with me in the office for outpatient EMG of the right upper extremity Subjective She has some twinges of pain in the neck, arm numbness when she moves it. Patient informed that stroke workup is negative. Objective Vital Signs Date Time Temp Pulse Resp B/P Pulse Ox O2 Delivery O2 Flow Rate FiO2 07/28/16 10:58 98.3 80 16 122/72 97 Room Air 98.3 Intake and Output 07/28/16 07:00 Intake Total 810 ml Balance 810 ml Intake Oral 810 ml # Voids 3 PHYSICAL EXAM Alert. Oriented to time, place and person. PERRL. EOMI. CN: no focal findings. Muscle tone: normal. Muscle strength: 5/5 DTR: 2+ Plantar reflex: flexor Gait: not examined in bed. Sensory exam: no abnormal findings. No cerebellar signs elicited. Review of Relevant I have reviewed the following items cris (where applicable) has been applied. Labs Laboratory Tests Test 07/26/16 15:05 07/26/16 15:30 07/27/16 14:00 White Blood Count 6.8x10^3/uL (4.0-11.0) Red Blood Count 4.42x10^6/uL (3.50-5.40) Hemoglobin 12.9g/dL (12.0-15.5) Hematocrit 39.3% (36.0-47.0) Mean Corpuscular Volume 89fL (79-100) Mean Corpuscular Hemoglobin 29pg (25-35) Mean Corpuscular Hemoglobin Concent 33g/dL (31-37) Red Cell Distribution Width 13.7% (11.5-14.5) Platelet Count 346x10^3/uL (140-400) Neutrophils (%) (Auto) 55% (31-73) Lymphocytes (%) (Auto) 39% (24-48) Monocytes (%) (Auto) 5% (0-9) Eosinophils (%) (Auto) 1% (0-3) Basophils (%) (Auto) 1% (0-3) Neutrophils # (Auto) 3.7x10^3uL (1.8-7.7) Lymphocytes # (Auto) 2.6x10^3/uL (1.0-4.8) Monocytes # (Auto) 0.3x10^3/uL (0.0-1.1) Eosinophils # (Auto) 0.1x10^3/uL (0.0-0.7) Basophils # (Auto) 0.0x10^3/uL (0.0-0.2) Prothrombin Time 12.5SEC (11.7-14.0) Prothromb Time International Ratio 1.0 (0.8-1.1) Activated Partial Thromboplast Time 27SEC (24-38) Sodium Level 141mmol/L (136-145) Potassium Level 3.6mmol/L (3.5-5.1) Chloride Level 104mmol/L (98-107) Carbon Dioxide Level 28mmol/L (21-32) Anion Gap 9 (6-14) Blood Urea Nitrogen 19mg/dL (7-20) Creatinine 1.2mg/dL (0.6-1.0) Estimated GFR (Cockcroft-Gault) 46.1 BUN/Creatinine Ratio 16 (6-20) Glucose Level 94mg/dL (70-99) Calcium Level 9.6mg/dL (8.5-10.1) Total Bilirubin 0.4mg/dL (0.2-1.0) Aspartate Amino Transf (AST/SGOT) 18U/L (15-37) Alanine Aminotransferase (ALT/SGPT) 27U/L (14-59) Alkaline Phosphatase 63U/L (46-116) Total Protein 7.7g/dL (6.4-8.2) Albumin 4.1g/dL (3.4-5.0) Albumin/Globulin Ratio 1.1 (1.0-1.7) Urine Opiates Screen Neg (NEG) Urine Methadone Screen Neg (NEG) Urine Barbiturates Neg (NEG) Urine Phencyclidine Screen Neg (NEG) Urine Amphetamine/Methamphetamine Neg (NEG) Urine Benzodiazepines Screen Neg (NEG) Urine Cocaine Screen Neg (NEG) Urine Cannabinoids Screen Neg (NEG) Urine Ethyl Alcohol Neg (NEG) Triglycerides Level 134mg/dL (0-150) Cholesterol Level 219mg/dL (0-200) LDL Cholesterol, Calculated 144mg/dL (0-100) VLDL Cholesterol, Calculated 27mg/dL (0-40) HDL Cholesterol 48mg/dL (40-60) Cholesterol/HDL Ratio 4.6 Laboratory Tests Test 07/27/16 14:00 Triglycerides Level 134mg/dL (0-150) Cholesterol Level 219mg/dL (0-200) LDL Cholesterol, Calculated 144mg/dL (0-100) VLDL Cholesterol, Calculated 27mg/dL (0-40) HDL Cholesterol 48mg/dL (40-60) Cholesterol/HDL Ratio 4.6 Medications Current Medications Aspirin (Children'S Aspirin) 324 mg 1X ONCE PO Last administered on 07/26/16 17:21; Start 07/26/16 at 17:15; Stop 07/26/16 at 17:16; Status DC Ondansetron HCl (Zofran) 4 mg PRN Q8HRS PRN IV NAUSEA/VOMITING; Start 07/26/16 at 18:00; Stop 07/27/16 at 17:59; Status DC Aspirin (Damian Aspirin) 325 mg DAILYWBKFT PO Last administered on 07/28/16 09: 14; Start 07/27/16 at 09:30 Active Scripts Active Reported No Known Medications Prior To Admisstion (Info) Each 1 Each Vitals/I & O Vital Sign - Last 24 Hours 07/27/16 07/27/16 07/27/16 07/28/16 15:00 19:51 23:15 03:00 Temp 97.7 97.9 97.8 98.1 97.7 97.9 97.8 98.1 Pulse 77 66 72 59 Resp 18 18 18 18 B/P 98/65 109/67 98/65 94/46 Pulse Ox 98 97 98 99 O2 Delivery Room Air Room Air Room Air Room Air 07/28/16 07/28/16 07:00 10:58 Temp 98.1 98.3 98.1 98.3 Pulse 66 80 Resp 16 16 B/P 97/68 122/72 Pulse Ox 99 97 O2 Delivery Room Air Room Air Intake and Output 07/27/16 07/27/16 07/28/16 15:00 23:00 07:00 Intake Total 600 ml 210 ml Balance 600 ml 210 ml Images Cervical MRI: There is mild degenerative disc disease C4-5 to C6-7. There is no significant cervical spinal stenosis or neural foramina compromise. Brain MRI: 1. There is no evidence of recent infarct or intracranial mass effect. A few scattered small foci of T2 and FLAIR hyperintense signal abnormality of the supratentorial white matter and right basal ganglia are nonspecific. White matter changes can be seen in patients with migraine headaches if corresponding history. Sequela of chronic microvascular ischemic disease would be a consideration. Pattern is not particularly suggestive of an inflammatory demyelinating disease. Carotids: negative Echo: LEFT VENTRICLE The left ventricle is normal size. There is normal left ventricular wall thickness. Left ventricle systolic function is normal. The Ejection Fraction is 65-70%. There is normal LV segmental wall motion. The left ventricular diastolic function and filling is normal for age. RIGHT VENTRICLE The right ventricle is normal size. The right ventricular systolic function is normal. ATRIA The left atrium size is normal. The right atrium size is normal. The interatrial septum is intact with no evidence for an atrial septal defect or patent foramen ovale as noted on 2-D or Doppler imaging. Normal bubble study. AORTIC VALVE The aortic valve is normal in structure and function. The aortic valve is trileaflet. Doppler and Color Flow revealed no significant aortic regurgitation. There is no significant aortic valvular stenosis. MITRAL VALVE The mitral valve leaflets are thickened. There is no mitral valve stenosis. Doppler and Color Flow revealed mild mitral regurgitation. TRICUSPID VALVE The tricuspid valve is normal in structure and function. Doppler and Color Flow revealed mild tricuspid regurgitation. The PA pressure was estimated at 38 mmHg. There is no tricuspid valve stenosis. PULMONIC VALVE The pulmonic valve is not well visualized. Doppler and Color Flow revealed no pulmonic valvular regurgitation. There is no pulmonic valvular stenosis. GREAT VESSELS The aortic root is normal in size. Normal pulmonary venous flow (Doppler). The IVC is normal in size and collapses >50% with inspiration. PERICARDIAL EFFUSION There is no evidence of significant pericardial effusion. Critical Notification Critical Value: No <Conclusion> Left ventricle systolic function is normal. The Ejection Fraction is 65-70%. There is normal LV segmental wall motion. The interatrial septum is intact with no evidence for an atrial septal defect or patent foramen ovale as noted on 2-D or Doppler imaging. No evidence of left to right shunt by agitated saline contrast. DAKSHA EDWARDS MD Jul 28, 2016 12:21
[2016-07-28] MEDS ORDERED: ASPI-482 PO (13:53)
--- NOTE | 2016-07-30 23:24 | DS ---
DATE OF DISCHARGE: 07/28/2016 DISCHARGE DIAGNOSIS: Possible TIA. BRIEF HOSPITAL COURSE: This 60-year-old female patient admitted to the hospital for acute onset of right upper extremity weakness, numbness and tingling. Workup such as echocardiogram, MRI brain and cervical spine MRI was negative. The patient's symptoms resolved by the time she presented to the ER. She was evaluated by Cardiology and Dr. Harrell during hospitalization. Her labs showed within normal range except for mild elevation of cholesterol, which has been discussed with the patient. The patient would like to have lifestyle changes at this time. She has been advised to follow up with Dr. Harrell for EMG and further testing. DISCHARGE EXAMINATION: GENERAL: Alert, oriented x 3. HEART: S1, S2 present. LUNGS: Anterior chest. ABDOMEN: Soft, nontender, no organomegaly. EXTREMITIES: No edema. DISCHARGE DISPOSITION: Home. DISCHARGE CONDITION: Stable. FOLLOWUP: With Dr. Harrell. MEDICATIONS: Reviewed and reconciled. Continue home medications. No new medications started. Total time spent for discharge is 35 minutes for the patient education, counseling and coordination of care. AL STRAUSS MD DR: MISAEL/cara JOB#: [id number] / [id number] GRETCHEN
== END 2016-07-28 14:32 | disposition home or self-care (01) | DRG 69 ==
LOC: ER 14:51 → 6 SOUTH 17:50
PROVIDERS: ADMIT Internal Medicine Hematology & Oncology; ATTEND Internal Medicine Hematology & Oncology
DX: G45.9 Transient cerebral ischemic attack, unspecified (principal); Z82.3 Family history of stroke; Z90.710 Acquired absence of both cervix and uterus; Z91.012 Allergy to eggs; Z88.8 Allergy status to other drugs, medicaments and biological substances; Z91.018 Allergy to other foods
CPT/HCPCS: 99285; C8929; 36415; 70450; 70551; 71010; 72141; 80053; 80061; 85027; 85610; 85730; 93005; 93880; G0481

== ENCOUNTER → 2016-08-26 | Outpatient (CLI) | payer OTHER ==
[2016-07-28 10:58] VITALS: BP 122/72
[~2016-08-26] MED LIST: ASPI-482 PO
[2016-08-26 08:59] LABS: BASO % 1 % (0-3); EOS % 2 % (0-3); HEMATOCRIT 41.6 % (36.0-47.0); HEMOGLOBIN 13.5 g/dL (12.0-15.5); LYMPH % 35 % (24-48); MEAN CORPUSCULAR HEMOGLOBIN 28 pg (25-35); MEAN CORPUSCULAR HGB CONC 32 g/dL (31-37); MEAN CORPUSCULAR VOLUME 87 fL (79-100); MONO % 6 % (0-9); NEUT % 57 % (31-73); PLATELET COUNT 389 x10^3/uL (140-400); RED BLOOD COUNT 4.76 x10^6/uL (3.50-5.40); RED CELL DISTRIBUTION WIDTH 13.6 % (11.5-14.5); RETIC COUNT 1.3 % (0.5-2.5); WHITE BLOOD COUNT 5.7 x10^3/uL (4.0-11.0)
[2016-08-26 09:04] LABS: % SAT IRON 14 % (15-34); C-REACTIVE PROTEIN 2.9 mg/L (0-3.3); CALCIUM 9.5 mg/dL (8.5-10.1); CREATININE 0.9 mg/dL (0.6-1.0); DIRECT BILIRUBIN 0.1 mg/dL (0.0-0.2); GFR 64.3; IRON,SERUM 54 ug/dL (50-170); POTASSIUM 4.9 mmol/L (3.5-5.1); TOTAL BILIRUBIN 0.3 mg/dL (0.2-1.0); TOTAL PROTEIN 7.4 g/dL (6.4-8.2)
[2016-08-26 11:06] LABS: BILIRUBIN,URINE NEGATIVE (NEG); GLUCOSE,URINE NEGATIVE (NEG); NITRITE,URINE NEGATIVE (NEG); PH,URINE 5.5; PROTEIN,URINE NEGATIVE (NEG-TRACE); UROBILINOGEN,URINE 0.2 mg/dL (0.2 mg/dL)
[2016-08-26 11:25] LABS: BACTERIA,URINE FEW /HPF (0-FEW); RBC,URINE RARE /HPF (0-2); SQUAMOUS EPITHELIAL CELL,UR FEW /LPF; WBC,URINE RARE /HPF (0-4)
[2016-08-26 11:49] LABS: FOLATE > 24.00 ng/ml (3.2-20.0); VITAMIN-B12 1539 pg/mL (247-911)
[2016-08-26 13:22] LABS: RHEUMATOID FACTOR <10.0 IU/mL (0.0-13.9)
== END | disposition home or self-care (01) ==
LOC: LAB 07:53
PROVIDERS: ATTEND Nurse Practitioner Family
DX: S30.860A Insect bite (nonvenomous) of lower back and pelvis, initial encounter (principal); R20.2 Paresthesia of skin; R53.83 Other fatigue; M62.81 Muscle weakness (generalized); M19.90 Unspecified osteoarthritis, unspecified site; X58.XXXA Exposure to other specified factors, initial encounter; Y93.89 Activity, other specified; Y92.89 Other specified places as the place of occurrence of the external cause; Y99.8 Other external cause status
CPT/HCPCS: 36415; 80048; 80076; 81001; 82550; 82607; 82746; 83525; 83540; 83550; 85027; 85045; 85651; 86140; 86431